=== PATIENT | male | born 1955 | race Caucasian/White ===

== ENCOUNTER 2018-08-10 17:55 | Inpatient (IN) | payer OTHER ==
[2018-08-10 18:34] LABS: ADD MAN DIFF? NO
[2018-08-10 18:38] LABS: ABNORMAL IP MESSAGE 1; BASOPHIL # 0.1 10^3/ul (0.0-0.1); BASOPHILS % 0.3 % (0.0-2.0); EOSINOPHILS % 0.1 % (0.0-7.0); HEMATOCRIT 45.1 % (42.0-52.0); HEMOGLOBIN 15.6 g/dl (14.0-18.0); LYMPHOCYTES # 1.5 10^3/ul (0.8-2.9); LYMPHOCYTES % 6.4 % (15.0-51.0); MEAN CORPUSCULAR HEMOGLOBIN 30.4 pg (29.0-33.0); MEAN CORPUSCULAR HGB CONC 34.6 g/dl (32.0-37.0); MEAN CORPUSCULAR VOLUME 87.7 fl (82.0-101.0); MEAN PLATELET VOLUME 9.7 fl (7.4-10.4); MONOCYTE # 2.4 10^3/ul (0.3-0.9); MONOCYTES % 10.2 % (0.0-11.0); PLATELET COUNT 315 10^3/UL (140-415); POSITIVE DIFF @See below; RED BLOOD COUNT 5.14 10^6/ul (4.70-6.10); RED CELL DISTRIBUTION WIDTH 13.2 % (11.5-14.5)
[2018-08-10 18:38] LABS: WHITE BLOOD COUNT 23.1 10^3/ul (4.8-10.8)
[2018-08-10] MEDS: SODIUM CHLORIDE 0.9% 1L BAG IV* (18:50)
[2018-08-10] MEDS: ACETAMINOPHEN 325 MG TAB PO (18:54)
[2018-08-10] MEDS: CEFEPIME 2GM/50 ML (PMX) 50 ML IVPB (18:55)
[2018-08-10] MEDS: ONDANSETRON 4 MG INJ IV (18:55)
[2018-08-10] MEDS: morphine 4 MG/ML VIAL IV (18:55)
[2018-08-10 18:57] LABS: INR 1.18; PROTIME 15.1 Sec (11.9-14.9); PT RATIO 1.2
[2018-08-10 18:58] LABS: PARTIAL THROMBOPLASTIN TIME 33.2 Sec (23.0-35.0)
[2018-08-10 19:04] LABS: ALANINE AMINOTRANSFERASE 38 IU/L (13-69); ALBUMIN 4.4 g/dl (3.3-4.9); ALBUMIN/GLOBULIN RATIO 1.25; ALKALINE PHOSPHATASE 114 IU/L (42-121); AMYLASE 50 U/L (11-123); ANION GAP 11 (5-13); ASPARTATE AMINO TRANSFERASE 34 IU/L (15-46); BILIRUBIN,INDIRECT 1.5 mg/dl (0-1.1); BILIRUBIN,TOTAL 1.5 mg/dl (0.2-1.3); BLOOD UREA NITROGEN 10 mg/dl (7-20); CALCIUM 9.6 mg/dl (8.4-10.2); CARBON DIOXIDE 24 mmol/L (21-31); CHLORIDE 101 mmol/L (97-110); CREATININE 0.85 mg/dl (0.61-1.24); Estimated GFR > 60 mL/min (>60); GLUCOSE 183 mg/dl (70-220); LIPASE 27 U/L (23-300); SODIUM 136 mmol/L (135-144); TOTAL PROTEIN 7.9 g/dl (6.1-8.1)
[2018-08-10 19:15] LABS: TROPONIN-I < 0.012 ng/ml (0.000-0.120)
[2018-08-10 19:26] LABS: ADD UMIC NO; UR ASCORBIC ACID NEGATIVE (NEGATIVE); UR BILIRUBIN (Dip) NEGATIVE (NEGATIVE); UR BLOOD (Dip) NEGATIVE (NEGATIVE); UR CLARITY CLEAR (CLEAR); UR COLOR YELLOW (YELLOW); UR GLUCOSE (Dip) NEGATIVE (NEGATIVE); UR KETONES (Dip) NEGATIVE (NEGATIVE); UR LEUKOCYTE ESTERASE (Dip) NEGATIVE Leu/ul (NEGATIVE); UR NITRITE (Dip) NEGATIVE (NEGATIVE); UR SPECIFIC GRAVITY (Dip) 1.009 (1.003-1.030); UR TOTAL PROTEIN (Dip) NEGATIVE (NEGATIVE); UR UROBILINOGEN (Dip) 1+ mg/dL (NEGATIVE)
[2018-08-10] MEDS: VANCOMYCIN 1 GM (PMX) 250 ML IVPB (19:51)
[2018-08-10] MEDS ORDERED: ONDANSETRON 4 MG INJ IV (20:30)
[2018-08-10] MEDS: ALBUTEROL/IPRATROPIUM (NEB) 3 ML AMP HHN (23:09)
[2018-08-10] MEDS: IOHEXOL 300MG/ML 150 ML BTL (23:14)
[2018-08-10] MEDS: SOD CHLORIDE 0.9% 100 ML (23:14)
[2018-08-10] MEDS ORDERED: LEVALBUTEROL (NEB) 0.63 MG/3 ML AMP HHN (23:30)
[2018-08-10] MEDS ORDERED: IPRATROPIUM (NEB) 0.5 MG/2.5 ML AMP NEB (23:30)
[2018-08-10] MEDS ORDERED: ACETAMINOPHEN 325 MG TAB PO (23:30)
[2018-08-10] MEDS ORDERED: NACL 0.9% 3 ML SYG IV (23:30)
[2018-08-11] MEDS: PIPER-TAZO 3.375 GM IV (PMX) 100 ML IVPB ×3 (06:13→18:00)
[2018-08-11 06:22] LABS: ADD MAN DIFF? NO
[2018-08-11 06:29] LABS: ABNORMAL IP MESSAGE 1; BASOPHIL # 0.1 10^3/ul (0.0-0.1); BASOPHILS % 0.3 % (0.0-2.0); HEMATOCRIT 42.4 % (42.0-52.0); HEMOGLOBIN 14.3 g/dl (14.0-18.0); LYMPHOCYTES # 1.6 10^3/ul (0.8-2.9); LYMPHOCYTES % 7.7 % (15.0-51.0); MEAN CORPUSCULAR HEMOGLOBIN 30.3 pg (29.0-33.0); MEAN CORPUSCULAR HGB CONC 33.7 g/dl (32.0-37.0); MEAN CORPUSCULAR VOLUME 89.8 fl (82.0-101.0); MEAN PLATELET VOLUME 10.1 fl (7.4-10.4); MONOCYTE # 1.8 10^3/ul (0.3-0.9); MONOCYTES % 8.8 % (0.0-11.0); NEUTROPHIL # 17.1 10^3/ul (1.6-7.5); NEUTROPHILS % 82.2 % (39.0-77.0); PLATELET COUNT 273 10^3/UL (140-415); POSITIVE DIFF @See below; RED BLOOD COUNT 4.72 10^6/ul (4.70-6.10); RED CELL DISTRIBUTION WIDTH 13.5 % (11.5-14.5)
[2018-08-11 06:29] LABS: WHITE BLOOD COUNT 20.8 10^3/ul (4.8-10.8)
[2018-08-11 06:51] LABS: ALANINE AMINOTRANSFERASE 61 IU/L (13-69); ALBUMIN 3.5 g/dl (3.3-4.9); ALBUMIN/GLOBULIN RATIO 1.09; ALKALINE PHOSPHATASE 109 IU/L (42-121); ANION GAP 8 (5-13); ASPARTATE AMINO TRANSFERASE 44 IU/L (15-46); BILIRUBIN,INDIRECT 1.6 mg/dl (0-1.1); BILIRUBIN,TOTAL 2.4 mg/dl (0.2-1.3); BLOOD UREA NITROGEN 9 mg/dl (7-20); CALCIUM 8.6 mg/dl (8.4-10.2); CARBON DIOXIDE 24 mmol/L (21-31); CHLORIDE 107 mmol/L (97-110); CREATININE 0.76 mg/dl (0.61-1.24); Estimated GFR > 60 mL/min (>60); GLUCOSE 155 mg/dl (70-220); MAGNESIUM 2.1 mg/dl (1.7-2.5); PHOSPHORUS 1.7 mg/dl (2.5-4.9); POTASSIUM 3.8 mmol/L (3.5-5.1); SODIUM 139 mmol/L (135-144); TOTAL PROTEIN 6.7 g/dl (6.1-8.1)
[2018-08-11] MEDS ORDERED: ROCURONIUM 50 MG INJ ×2 (07:00→17:53)
[2018-08-11] MEDS ORDERED: VANCOMYCIN IV PER PHARMACY XX (07:00)
[2018-08-11] MEDS: VANCOMYCIN HCL 1.25 GM in SOD CHLORIDE 0.9% 250 ML IVPB ×2 (08:38→19:00)
[2018-08-11] MEDS: RANITIDINE 150 MG TAB PO ×2 (08:50→21:00)
[2018-08-11] MEDS: AMLODIPINE 5 MG TAB PO (08:51)
[2018-08-11] MEDS: HEPARIN 5,000 UNIT/1 ML VIAL SC ×2 (08:59→21:00)
[2018-08-11] MEDS: ACETAMINOPHEN 325 MG TAB PO (09:06)
[2018-08-11] MEDS: ONDANSETRON 4 MG INJ IV (12:59)
[2018-08-11] MEDS: HYDROmorphONE 1 MG/ML SYG IV ×2 (15:54→21:43)
[2018-08-11] MEDS ORDERED: ONDANSETRON 4 MG INJ IV ×3 (16:00→20:30)
[2018-08-11] MEDS: PROCHLORPERAZINE 10 MG INJ IV (16:08)
[2018-08-11] MEDS ORDERED: FENTAnyl 50 MCG/ML VIAL (17:53)
[2018-08-11] MEDS ORDERED: PROPOFOL 20 ML (17:53)
[2018-08-11] MEDS ORDERED: MIDAZOLAM 1 MG/ML 2 ML INJ (17:53)
[2018-08-11] MEDS ORDERED: ROPIVACAINE 0.5 % 30 ML VIAL ×2 (17:57)
[2018-08-11] MEDS ORDERED: CEFAZOLIN 1 GM INJ (17:58)
[2018-08-11] MEDS ORDERED: HYDROmorphONE 1 MG/5 ML IV SYRINGE IV ×3 (18:30)
[2018-08-11] MEDS ORDERED: DIPHENHYDRAMINE 50 MG INJ IV (18:30)
[2018-08-11] MEDS ORDERED: FENTAnyl 50 MCG/ML VIAL IV ×3 (18:30)
[2018-08-11] MEDS ORDERED: EPHEDrine SULFATE 50 MG/5 ML SYG IV (18:30)
[2018-08-11] MEDS ORDERED: hydrALAzine 20 MG INJ IV (18:30)
[2018-08-11] MEDS ORDERED: MEPERIDINE 25 MG INJ IV (18:30)
[2018-08-11] MEDS ORDERED: LABETALOL HCL 20MG INJ IV (18:30)
[2018-08-11] MEDS ORDERED: METOCLOPRAMIDE 10 MG INJ IV (18:30)
[2018-08-11] MEDS ORDERED: PHENYLephrine (100 MCG/ML) 5ML SYG ×2 (18:58→19:41)
[2018-08-11] MEDS: BUPIVACAINE 0.25% (MPF) 30 ML INJ (19:21)
[2018-08-11] MEDS: LIDOCAINE 1% (MPF) 30 ML INJ (19:21)
[2018-08-11] MEDS ORDERED: METOCLOPRAMIDE 10 MG INJ (19:32)
[2018-08-11] MEDS ORDERED: ONDANSETRON 4 MG INJ (19:32)
[2018-08-11] MEDS ORDERED: KETOROLAC 30 MG INJ (19:32)
[2018-08-11] MEDS ORDERED: DEXAMETHASONE 4 MG/ML 5 ML INJ (19:32)
[2018-08-11] MEDS ORDERED: SUGAMMADEX SODIUM 200 MG/2 ML VIAL IV (19:32)
[2018-08-11] MEDS ORDERED: HYDROmorphONE 0.5 MG/0.5 ML SYG IV (20:30)
[2018-08-11] MEDS ORDERED: NALOXONE (0.4 MG/ML) INJ (20:43)
[2018-08-11] MEDS: TAMSULOSIN (SR) 0.4 MG CAP PO (21:00)
[2018-08-11] MEDS: ATORVASTATIN 10 MG TAB PO (21:00)
[2018-08-11] MEDS: CEFTRIAXONE 1 GM/50 ML (PMX) 50 ML IVPB (21:33)
[2018-08-12] MEDS: PIPER-TAZO 3.375 GM IV (PMX) 100 ML IVPB ×4 (00:46→17:07)
[2018-08-12] MEDS: VANCOMYCIN HCL 1.25 GM in SOD CHLORIDE 0.9% 250 ML IVPB ×2 (06:37→18:57)
[2018-08-12] MEDS: HEPARIN 5,000 UNIT/1 ML VIAL SC ×2 (08:58→20:08)
[2018-08-12] MEDS: KETOROLAC 30 MG INJ IV (09:01)
[2018-08-12] MEDS: RANITIDINE 150 MG TAB PO ×2 (11:37→20:03)
[2018-08-12] MEDS: AMLODIPINE 5 MG TAB PO (11:37)
[2018-08-12] MEDS: HYDROCODONE/APAP (5/325) TAB PO (16:00)
[2018-08-12] MEDS: TAMSULOSIN (SR) 0.4 MG CAP PO (20:03)
[2018-08-12] MEDS: ATORVASTATIN 10 MG TAB PO (20:03)
[2018-08-12] MEDS: SOD CHLORIDE 0.9% 1,000 ML IV (23:16)
[2018-08-13] MEDS: PIPER-TAZO 3.375 GM IV (PMX) 100 ML IVPB ×3 (00:21→11:45)
[2018-08-13] MEDS: HYDROmorphONE 1 MG/ML SYG IV (01:56)
[2018-08-13] MEDS: VANCOMYCIN HCL 1.25 GM in SOD CHLORIDE 0.9% 250 ML IVPB (06:25)
[2018-08-13 06:49] LABS: ADD MAN DIFF? NO
[2018-08-13 06:51] LABS: WHITE BLOOD COUNT 14.6 10^3/ul (4.8-10.8)
[2018-08-13 06:51] LABS: BASOPHILS % 0.1 % (0.0-2.0); HEMATOCRIT 41.6 % (42.0-52.0); HEMOGLOBIN 13.8 g/dl (14.0-18.0); LYMPHOCYTES # 2.4 10^3/ul (0.8-2.9); LYMPHOCYTES % 16.4 % (15.0-51.0); MEAN CORPUSCULAR HEMOGLOBIN 30.3 pg (29.0-33.0); MEAN CORPUSCULAR HGB CONC 33.2 g/dl (32.0-37.0); MEAN CORPUSCULAR VOLUME 91.2 fl (82.0-101.0); MEAN PLATELET VOLUME 10.3 fl (7.4-10.4); MONOCYTE # 1.1 10^3/ul (0.3-0.9); MONOCYTES % 7.4 % (0.0-11.0); NEUTROPHIL # 11.1 10^3/ul (1.6-7.5); NEUTROPHILS % 75.7 % (39.0-77.0); PLATELET COUNT 369 10^3/UL (140-415); RED BLOOD COUNT 4.56 10^6/ul (4.70-6.10)
[2018-08-13 07:35] LABS: ANION GAP 11 (5-13); BLOOD UREA NITROGEN 20 mg/dl (7-20); CALCIUM 8.7 mg/dl (8.4-10.2); CARBON DIOXIDE 27 mmol/L (21-31); CHLORIDE 104 mmol/L (97-110); CREATININE 0.77 mg/dl (0.61-1.24); Estimated GFR > 60 mL/min (>60); GLUCOSE 122 mg/dl (70-220); POTASSIUM 3.9 mmol/L (3.5-5.1); SODIUM 142 mmol/L (135-144)
[2018-08-13 08:37] LABS: VANCOMYCIN,TROUGH 22.3 ug/ml (10.0-20.0)
[2018-08-13] MEDS: RANITIDINE 150 MG TAB PO (09:22)
[2018-08-13] MEDS: HYDROCODONE/APAP (5/325) TAB PO (09:22)
[2018-08-13] MEDS: AMLODIPINE 5 MG TAB PO (09:23)
[2018-08-13] MEDS: HEPARIN 5,000 UNIT/1 ML VIAL SC (09:24)
[2018-08-13] MEDS: INFLUENZA VIRUS VACCINE 0.5 ML (DISPENSING) IM* (14:23)
== END 2018-08-13 16:30 | disposition home or self-care (01) | DRG 853 ==
LOC: TEL 23:14 → E/R 17:55 → TEL 20:26
PROC: 0FT44ZZ Resection of Gallbladder, Percutaneous Endoscopic Approach (ICD-10-PCS; principal; 2018-08-11 17:00)
DX: A41.9 Sepsis, unspecified organism (principal); J18.9 Pneumonia, unspecified organism; K80.00 Calculus of gallbladder with acute cholecystitis without obstruction; I10 Essential (primary) hypertension; E78.5 Hyperlipidemia, unspecified; K82.A1 Gangrene of gallbladder in cholecystitis; N40.0 Benign prostatic hyperplasia without lower urinary tract symptoms; Z87.891 Personal history of nicotine dependence
CPT/HCPCS: 36415; 71045; 74177; 80048; 80053; 80202; 81003; 82150; 83605; 83690; 83735; 84100; 84484; 85025; 85610; 85730; 87040; 87086; 87400; 88304; 90686; 93005; 94664; 96365; 96367; 96375; 99285-25